=== PATIENT | male | born 1985 | race Caucasian/White ===

== ENCOUNTER 2018-12-24 19:52 | Inpatient (IN) | payer MEDICAID ==
[~2018-12-24] VITALS: Ht 175.3 cm; Wt 69.9 kg
[2018-12-24 20:05] VITALS: BP 125/79
--- NOTE | 2018-12-24 20:07 | NUR ---
TO BED #06 AMBULATORY
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
--- NOTE | 2018-12-24 20:11 | NUR ---
SITTER AT BEDSIDE.
--- NOTE | 2018-12-24 21:06 | NUR ---
CALLED SOC TELEMED S/W RACE, PT WILL BE QUEUED FOR CONSULT
[2018-12-24 21:17] LABS: BASOPHILS # (AUTO) 0.1 K/uL (0.00-0.22); BASOPHILS % (AUTO) 0.9 % (0.0-2.0); EOSINOPHILS # (AUTO) 0.5 K/uL (0-0.4); EOSINOPHILS % (AUTO) 5.2 % (0.0-4.0); HEMATOCRIT 41.1 % (36-52); HEMOGLOBIN 13.8 g/dL (12.0-18.0); LYMPHOCYTES # (AUTO) 2.7 K/uL (2.0-11.5); MEAN CORPUSCULAR HEMOGLOBIN 31 pg (27-31); MEAN CORPUSCULAR HGB CONC 34 g/dL (33-37); MEAN CORPUSCULAR VOLUME 93.3 fL (80-94); MONOCYTES # (AUTO) 0.9 K/uL (0.8-1.0); NEUTROPHILS # (AUTO) 4.7 K/uL (1.8-7.7); NEUTROPHILS % (AUTO) 52.9 % (42.2-75.2); PLATELET COUNT (AUTO) 258 K/uL (140-450); RED BLOOD CELL COUNT(AUTO) 4.41 MIL/uL (4.20-6.10); RED CELL DISTRIBUTION WIDTH 13.3 % (11.6-13.7); WHITE BLOOD COUNT (AUTO) 8.9 K/uL (4.8-10.8)
--- NOTE | 2018-12-24 21:18 | NUR ---
PT UNABLE TO PROVIDE URINE AT THIS TIME.
--- NOTE | 2018-12-24 21:37 | NUR ---
psych doc talking to pt
--- NOTE | 2018-12-24 21:46 | NUR ---
SPOKE WITH LAURI WHITTAKER IN REGARDS TO PT STATUS. [facility] WANTS TO ADMIT PT ON 5150 HOLD FOR PT SAFETY.
[2018-12-24 21:48] LABS: ALBUMIN 3.2 g/dL (3.4-5.0); ASPARTATE AMINOTRANSFERASE 16 U/L (15-37); CARBON DIOXIDE 29.7 mmol/L (21-32); CREATININE 0.8 mg/dL (0.7-1.3); GFR ARICAN-AMERICAN 141 mL/min (>90); GLUCOSE 82 mg/dL (74-106); TOTAL BILIRUBIN 0.4 mg/dL (0.0-1.0); UREA NITROGEN, BLOOD 6 mg/dL (7-18)
[2018-12-24 21:53] LABS: SODIUM SERUM 144 mmol/L (136-145)
[2018-12-24 21:54] LABS: ANION GAP 11.2 (8-16); CHLORIDE 107 mmol/L (98-107); POTASSIUM 3.9 mmol/L (3.5-5.1)
--- NOTE | 2018-12-24 21:55 | NUR ---
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
[2018-12-24 22:12] LABS: ACETAMINOPHEN < 0.5 ug/ml (10-30); SALICYLATE < 2.8 mg/dL (2.8-20.0)
[2018-12-24] MEDS ORDERED: CITA20TA15 PO (22:13)
[2018-12-24] MEDS ORDERED: TRAZ-343 PO (22:14)
[2018-12-24] MEDS ORDERED: QUET100T PO (22:14)
--- NOTE | 2018-12-24 22:38 | NUR ---
PT IS LAYING IN BED WITH NO SIGNS OF DISTRESS. PT CALM. NO CHANGES IN BEHAVIOR.
[2018-12-24 23:00] LABS: APPEARANCE,URINE CLEAR (CLEAR); BILIRUBIN,URINE NEGATIVE (NEGATIVE); BLOOD, URINE NEGATIVE (NEGATIVE); COLOR,URINE YELLOW (YELLOW); LEUKOCYTE ESTERASE ,URINE NEGATIVE (NEGATIVE); NITRITE, URINE NEGATIVE (NEGATIVE); UGLUCOSE NEGATIVE (NEGATIVE)
[2018-12-24 23:13] LABS: BARBITURATE, URINE NEGATIVE ng/ml (NEG <=200); BENZODIAZEPINE, URINE NEGATIVE ng/mL (NEG <=200); CANNABINOID, URINE NEGATIVE ng/mL (NEG <=50); COCAINE, URINE NEGATIVE ng/mL (NEG <=300); OPIATE, URINE NEGATIVE ng/mL (NEG <=2000); PHENCYCLIDINE SCREEN,URINE NEGATIVE ng/mL (NEG <=25)
--- NOTE | 2018-12-25 00:40 | NUR ---
Received intake paperwork and spoke with Alina. Information has been sent to the following facilities for possible placement. [facility]/ [facility]/ [facility]/ [facility]/ [facility]
--- NOTE | 2018-12-25 02:10 | NUR ---
PT IS SLEEPING IN BED WITH NO SIGNS OF DISTRESS. EVEN UNLABORED BREATHING. SITTER AT BEDSIDE. NO PAIN REPORTED AT THIS TIME. WILL CONTINUE TO MONITOR.
--- NOTE | 2018-12-25 02:55 | NUR ---
Intake paperwork was also sent to [facility] and [facility]
--- NOTE | 2018-12-25 04:53 | NUR ---
PT SLEEPING IN BED NO SIGNS OF DISTRESS. VSS. SITTER AT BEDSIDE.
[2018-12-25] MEDS ORDERED: MORPHINE SULFATE 2 MG/ML SYR IVP PRN (05:25)
[2018-12-25] MEDS ORDERED: ACETAMINOPHEN 325 MG TAB PO PRN (05:25)
[2018-12-25] MEDS ORDERED: HYDROcodone/APAP 5/325 MG 1 TAB TAB PO PRN (05:25)
[2018-12-25] MEDS ORDERED: ONDANSETRON 4 MG/2 ML VIAL IM/IVP PRN (05:25)
[2018-12-25] MEDS ORDERED: LORazepam 2 MG/ML VIAL IM/IVP PRN (05:25)
[2018-12-25] MEDS ORDERED: DOCUSATE SODIUM 100 MG GELCAP PO PRN (05:25)
--- NOTE | 2018-12-25 06:27 | NUR ---
PT IS SLEEPING WITH NO SIGNS OF DISTRESS. NO PAIN REPORTED. VSS. SITTER AT BEDSIDE.
--- NOTE | 2018-12-25 07:11 | NUR ---
Admited to [facility]. Will go to room 109B. Belongings list completed. Report to MADHU WHITE.
--- NOTE | 2018-12-25 07:20 | NUR ---
RECEIVED REPORT FROM THE ED NURSE MIKE. PT IS AWAKE AND ALERT, NO S/S OF ACUTE DISTRESS. PT IS AMBULATORY, ON ROOM AIR, SKIN INTACT. NO IV SITE NOTED, PER ED NURSE THEY DID NOT INSERT AN IV BECAUSE PT IS NOT GETTING ANY IV FLUIDS OR IV MEDS. PER ED NURSE, ALL PT'S BELONGINGS ARE WITH SECURITY AND PT SIGNED FOR THEM. SAFETY PRECAUTIONS ARE IN PLACE. SITTER IS AT THE ROOM.
--- NOTE | 2018-12-25 08:00 | NUR ---
0800 VITAL SIGNS (UPON ADMIT): BP 93/65, O2 96% ON RA, HR 61, TEMP 97.8, RR 16.
[2018-12-25 09:00] VITALS: BP 93/65
--- NOTE | 2018-12-25 11:25 | NUR ---
PT REFUSED TO HAVE BLOOD DRAWN. DR COOK IS AWARE.
--- NOTE | 2018-12-25 12:20 | NUR ---
MRSA NARES SWAB TAKEN TO LAB
--- NOTE | 2018-12-25 14:04 | NUR ---
PT RESTING COMFORTABLY IN BED, NO S/S OF DISTRESS. SITTER IS AT THE DOOR.
--- NOTE | 2018-12-25 14:46 | NUR ---
PT ASKING ABOUT WHEN A PSYCH DOCTOR IS GOING TO COME SEE HIM. HE STATES THAT "THIS IS NOT A PSYCH HOSPITAL", AND HE WAS "JUST HAVING A BAD DAY" WHEN HE WAS THINKING ABOUT SUICIDE. I EXPLAINED TO PT THAT A PSYCH DOCTOR WAS ALREADY CONSULTED TO COME EVALUATE HIM.
--- NOTE | 2018-12-25 15:22 | NUR ---
PT C/O THE HOSPITAL NOT BEING LIKE A "REAL" HOSPITAL, C/O NOT HAVING A TV IN HIS ROOM. PT IS SEEN BY DR COOK AT THIS TIME.
[2018-12-25] MEDS ORDERED: LORazepam 2 MG/ML VIAL IVP PRN (15:35)
[2018-12-25] MEDS ORDERED: CITALOPRAM 20 MG TAB PO SCH (15:37)
[2018-12-25 16:00] VITALS: BP 116/73
--- NOTE | 2018-12-25 16:05 | NUR ---
PT C/O BEING HUNGRY, ASKED FOR A CHICKEN SALAD SANDWICH; PROVIDED.
--- NOTE | 2018-12-25 19:25 | NUR ---
Change of shift report given, previous attempts for bed placement have been to the following facilities. Will continue to search and keep facility updated with any progress
--- NOTE | 2018-12-25 19:25 | NUR ---
ENDORSED PT TO HOTEL ENGINEER CHARGE NURSE CONTRERAS IN STABLE CONDITION
[2018-12-25] MEDS: traZODone 50 MG TAB PO SCH (22:55)
[2018-12-25] MEDS: QUEtiapine FUMARATE 100 MG TAB PO SCH (22:57)
--- NOTE | 2018-12-26 07:18 | NUR ---
RECEIVED BEDSIDE REPORT FROM INTELLIGENCE RESEARCH SPECIALIST NURSE, PT IS RESTING IN BED, NO S/S OF DISTRESS, SITTER IS AT THE ROOM. SKIN INTACT, NO IV. SAFETY PRECAUTIONS IN PLACE. WILL CONTINUE TO MONITOR.
[2018-12-26 08:00] VITALS: BP 111/75
--- NOTE | 2018-12-26 08:41 | NUR ---
PATIENT HAS BEEN SCREENED AND CATEGORIZED LOW NUTRITION RISK. PATIENT WILL BE SEEN WITHIN 7 DAYS OF ADMISSION. 12/31/[address]
[2018-12-26] MEDS ORDERED: CITALOPRAM 20 MG TAB PO SCH (09:00)
--- NOTE | 2018-12-26 09:37 | NUR ---
AM MED ADMINISTERED, PT TOLERATED WELL. ATE 100% OF HIS BREAKFAST.
--- NOTE | 2018-12-26 14:47 | NUR ---
PT SLEEPING, NO S/S OF DISTRESS, SITTER AT THE ROOM.
[2018-12-26 16:00] VITALS: BP 114/73
--- NOTE | 2018-12-26 18:22 | NUR ---
PT EATING DINNER
--- NOTE | 2018-12-26 19:25 | NUR ---
ENDORSED PT TO SERVICE LIAISON REPRESENTATIVE NURSE IN STABLE CONDITION.
[2018-12-26] MEDS: traZODone 50 MG TAB PO SCH (20:53)
[2018-12-26] MEDS: QUEtiapine FUMARATE 100 MG TAB PO SCH (20:53)
[2018-12-27 02:37] VITALS: BP 102/72
--- NOTE | 2018-12-27 05:34 | NUR ---
Notified Charge nurse Crystal WHITE no beds found thru out the shift , [facility] Nirali Leahy
--- NOTE | 2018-12-27 07:20 | NUR ---
RECEIVED PT FROM NIGHT NURSE. 5150. PT IN BED SLEEPING, AROUSABLE TO SPEECH, AAOX4. RESPIRATIONS EVEN AND UNLABORED ON ROOM AIR. NO IV IN PLACE. BED IN LOW POSITION. SAFETY MEASURES IN PLACE. WILL CONTINUE TO MONITOR.
[2018-12-27 08:00] VITALS: BP 97/53
--- NOTE | 2018-12-27 09:09 | NUR ---
Discharge Plan: GRAZYNA contacted the following facilities: Spoke to Shelby from [facility] [phone]. Per Shelby, stated there is no bed availability at this time. Shelby stated that patient was declined because patient is self-pay. GRAZYNA stated that patient has [place] [employer] insurance. Shelby requested for packet to be refaxed: [phone]. Spoke to Madeleine from [facility] [phone]. Per Madeleine, there is no bed availability at this time. Spoke to Precious from [facility] [phone]. Per Precious, there is no bed availability at this time. Precious requested for packet to be refaxed to [phone] after 1200. GRAZYNA/LARRY will follow up as needed.
--- NOTE | 2018-12-27 10:06 | NUR ---
MEDICATIONS ADMINISTERED PER ORDER. PT TOLERATED WELL. WILL CONTINUE TO MONITOR.
--- NOTE | 2018-12-27 12:08 | NUR ---
[facility] continuing to refer patient for placement. At this time no beds available at the following facilities, [facility], [facility], [facility], [place], [facility]
--- NOTE | 2018-12-27 12:18 | NUR ---
ROUNDS DONE AT THIS TIME. PT IN BED WITH EYES CLOSED, AROUSABLE TO SPEECH. NO DISTRESS NOTED. DENIES PAIN. WILL CONTINUE TO MONITOR.
--- NOTE | 2018-12-27 15:24 | NUR ---
VITAL SIGNS TAKEN AT THIS TIME. NO DISTRESS NOTED. PT DENIES PAIN. PT EXPRESSES NEED TO HAVE HIS COMPUTER TO COMMUNICATE WITH HIS JOB. SVETA SPOKE TO RADHA WHO ALLOWED THE USE OF HIS COMPUTER. WILL CONTINUE TO MONITOR.
[2018-12-27 16:00] VITALS: BP 125/72
[2018-12-27] MEDS ORDERED: LORazepam 1 MG TAB PO PRN (18:05)
--- NOTE | 2018-12-27 19:10 | NUR ---
REPORT GIVE NTO NIGHT NURSE FOR CONTINUITY OF CARE.
--- NOTE | 2018-12-27 19:13 | NUR ---
RECEIVED BEDSIDE REPORT FROM AM NURSE. 5150. PT SITTING ON BED AWAKE AND ALERT. AOX4. PATIENT IS AMBULATORY. NO SOB OR DISTRESS NOTED. NO IV LINE IN PLACE. SAFETY MEASURES IN PLACE. SITTER IN PLACE. BED IN LOW POSITION. WILL CONTINUE TO MONITOR PATIENT.
--- NOTE | 2018-12-27 19:21 | NUR ---
DUE MEDS GIVEN AT THIS TIME. NO DISTRESS NOTED. WILL CONTINUE TO MONITOR PATIENT.
[2018-12-27] MEDS: traZODone 50 MG TAB PO SCH (21:20)
[2018-12-27] MEDS: QUEtiapine FUMARATE 100 MG TAB PO SCH (21:21)
--- NOTE | 2018-12-27 23:01 | NUR ---
ROUNDS DONE. PATIENT SLEEPING COMFORTABLY. VISIBLE CHEST RISE AND FALL NOTED. SITTER IN PLACE. WILL CONTINUE TO MONITOR PATIENT.
[2018-12-28 00:05] VITALS: BP 104/51
--- NOTE | 2018-12-28 00:05 | NUR ---
VITAL SIGNS TAKEN. NO DISTRESS NOTED. WILL CONTINUE TO MONITOR PATIENT.
--- NOTE | 2018-12-28 02:00 | NUR ---
ROUNDS DONE. PATIENT ASLEEP. NO DISTRESS NOTED. WILL CONTINUE TO MONITOR.
--- NOTE | 2018-12-28 04:06 | NUR ---
ROUNDS DONE. PT SLEEPING COMFORTABLY. VISIBLE CHEST RISE AND FALL NOTED. SITTER IN PLACE. WILL CONTINUE TO MONITOR PATIENT.
--- NOTE | 2018-12-28 04:59 | NUR ---
Notified Joey director smb sales nurse pt packet still under review at the following facilities [facility] Doll will endorsed to AM shift to continue to look for placement.
--- NOTE | 2018-12-28 07:30 | NUR ---
Report received from night nurse leigh ann. pt sleeping, easily arousable, denies suicidal ideations or ideations of self harm or harm to others, sitter at bedside. Denies pain or discomfort, no s/s of aute distress noted aththis time, suicide precautions in place, will continue to monitor.
--- NOTE | 2018-12-28 07:31 | NUR ---
PT IN STABLE CONDITION. NO DISTRESS NOTED. ENDORSED TO AM SHIFT RN FOR CONTINUITY OF CARE.
--- NOTE | 2018-12-28 07:58 | NUR ---
Received report from restaurant shift supervisor. [facility] still looking for placement.
[2018-12-28 08:00] VITALS: BP 101/74
[2018-12-28] MEDS ORDERED: CITALOPRAM 20 MG TAB PO SCH (09:00)
--- NOTE | 2018-12-28 09:30 | NUR ---
Pt awake a/o able to communicate needs. Pt continues to deny suicidal ideations or ideations of self harm or harm to others, sitter at bedside. Denies pain or discomfort, no s/s of aute distress noted at this time, suicide precautions in place, will continue to monitor.
[2018-12-28] MEDS ORDERED: CITA40TA13 PO (10:39)
[2018-12-28] MEDS ORDERED: QUET200T PO (10:39)
[2018-12-28] MEDS ORDERED: TRAZ100T78 PO (10:39)
--- NOTE | 2018-12-28 11:30 | NUR ---
Pt sleeping at this time, appears comfortable sitter at bedside. Denies pain or discomfort, no s/s of acute distress noted at this time, suicide precautions in place, will continue to monitor.
[2018-12-28 11:37] VITALS: BP 101/74
[2018-12-28 11:49] VITALS: BP 101/74
--- NOTE | 2018-12-28 12:45 | NUR ---
Pt remains awake a/o able to communicate needs. Pt continues to deny suicidal ideations or ideations of self harm or harm to others. Provided pt w discharge instructions, pt verbalized understanding. Provided pt w homeless resource packet, public transportation voucher, all personal belongings and home medications from pharmacy. Pt denies pain or discomfort, no s/s of acute distress noted at this time, pt safely discharged to self care.
== END 2018-12-28 12:45 | disposition home or self-care (01) | DRG 52 ==
LOC: MED 19:52 → MTU 12-25 05:23
PROVIDERS: ADMIT General Practice; ATTEND General Practice
DX: G93.40 Encephalopathy, unspecified (principal); E44.0 Moderate protein-calorie malnutrition; F32.9 Major depressive disorder, single episode, unspecified; R45.850 Homicidal ideations; F29 Unspecified psychosis not due to a substance or known physiological condition; Z68.22 Body mass index [BMI] 22.0-22.9, adult; Z88.8 Allergy status to other drugs, medicaments and biological substances; Z79.899 Other long term (current) drug therapy
CPT/HCPCS: 36415; 71045; 80053; 80305; 81003; 81025; 82550; 84484; 85025; 87081; 93005; 99285; G0480; G0482; Q0092

== ENCOUNTER 2019-01-08 15:38 | Emergency (ER) | payer MEDICAID ==
[~2019-01-08] VITALS: Ht 175.3 cm; Wt 68.0 kg
[2019-01-08 15:38] VITALS: BP 141/103
[~2019-01-08 15:38] MED LIST: CITA40TA13 PO; QUET200T PO; TRAZ100T78 PO
--- NOTE | 2019-01-08 16:30 | NUR ---
PA BERNAL AT BEDSIDE EVALUATING PT
--- NOTE | 2019-01-08 16:38 | NUR ---
ROCHELLE WITH C/O ANXIETY & PARANOIA X2-3 DAYS. PT STATES HE HAS BEEN USING METH, MARIJUANA AND "ALOT" OF ALCOHOL OVER THE LAST FEW DAYS. PT STATES HE IS JUST UNHAPPY WITH HIMSELF RIGHT NOW AND IS LOOKING TO GET INTO A DETOX FACILITY. DENIES PAIN. SIDE RAIL UP X1. PROVIDED PT WITH URINE CUP. PT STATES HE IS UNABLE TO GO PEE RIGHT NOW
--- NOTE | 2019-01-08 16:46 | NUR ---
PT AMBULATED TO RESTROOM WITH STEADY GAIT
--- NOTE | 2019-01-08 16:57 | NUR ---
PT UNABLE TO URINATE AT THIS TIME
--- NOTE | 2019-01-08 17:21 | NUR ---
LABS SENT TO LAB.
[2019-01-08 17:37] LABS: BASOPHILS # (AUTO) 0.1 K/uL (0.00-0.22); BASOPHILS % (AUTO) 0.7 % (0.0-2.0); EOSINOPHILS # (AUTO) 0.2 K/uL (0-0.4); EOSINOPHILS % (AUTO) 1.5 % (0.0-4.0); HEMATOCRIT 44.1 % (36-52); HEMOGLOBIN 14.9 g/dL (12.0-18.0); LYMPHOCYTES % (AUTO) 16.5 % (20.5-51.1); MEAN CORPUSCULAR HEMOGLOBIN 31 pg (27-31); MEAN CORPUSCULAR HGB CONC 34 g/dL (33-37); MEAN CORPUSCULAR VOLUME 91.2 fL (80-94); MONOCYTES # (AUTO) 1.3 K/uL (0.8-1.0); MONOCYTES % (AUTO) 10.4 % (1.7-9.3); NEUTROPHILS # (AUTO) 8.7 K/uL (1.8-7.7); NEUTROPHILS % (AUTO) 70.9 % (42.2-75.2); PLATELET COUNT (AUTO) 283 K/uL (140-450); RED BLOOD CELL COUNT(AUTO) 4.83 MIL/uL (4.20-6.10); RED CELL DISTRIBUTION WIDTH 13.5 % (11.6-13.7); WHITE BLOOD COUNT (AUTO) 12.3 K/uL (4.8-10.8)
[2019-01-08 18:04] LABS: ANION GAP 17.9 (8-16); CARBON DIOXIDE 22.1 mmol/L (21-32)
--- NOTE | 2019-01-08 18:20 | NUR ---
PT STILL UNABLE TO PROVIDE URINE
[2019-01-08] MEDS ORDERED: POTASSIUM CHLORIDE 10 MEQ TABER PO ONE (18:25)
--- NOTE | 2019-01-08 18:30 | NUR ---
PT STILL NOT ABLE TO GIVE URINE SAMPLE, RAYMUNDO BERNAL MADE AWARE, AND TO SPEAK WITH PT.
--- NOTE | 2019-01-08 18:53 | NUR ---
Patient discharged with v/s stable. Written and verbal after care instructions given and explained. Patient verbalized understanding. Ambulatory with steady gait. All questions addressed prior to discharge. Advised to follow up with PMD. PT TO LOBBY TO WAIT FOR [facility]NAN[facility] MALDONADO. PT PROVIDED W/ HOMELESS RESOURCES AND DETOX PACKET.
[2019-01-08 18:54] VITALS: BP 136/98
== END 2019-01-08 18:53 | disposition home or self-care (01) ==
LOC: MED 15:38
DX: F41.9 Anxiety disorder, unspecified (principal); F19.10 Other psychoactive substance abuse, uncomplicated; E87.6 Hypokalemia; Z88.5 Allergy status to narcotic agent; Z88.8 Allergy status to other drugs, medicaments and biological substances; Z79.899 Other long term (current) drug therapy
CPT/HCPCS: 36415; 80048; 85025; 99283